=== PATIENT | female | born 1940 | race Caucasian/White ===

== ENCOUNTER 2017-05-04 00:25 | Inpatient (IN) | payer MEDICARE, OTHER ==
[2017-05-04 01:21] LABS: Troponin I 0.024 ng/mL (< 0.028)
[2017-05-04 01:22] LABS: ALT (SGPT) 13 U/L (8-55); AST (SGOT) 20 U/L (5-34); Alkaline Phosphatase 73 U/L (40-150); Anion Gap 16 mmol/L (10-20); BUN (Urea Nitrogen) 25 mg/dL (9.8-20.1); Bilirubin, Total 0.9 mg/dL (0.2-1.2); CK (CPK) 41 U/L (29-168); Calc. Creatinine Clearance 0 mL/min (70-130); Calcium 10.3 mg/dL (7.8-10.44); Carbon Dioxide 22 mmol/L (23-31); Chloride 97 mmol/L (98-107); Estimated GFR-MDRD 60; Globulin 4.2 g/dL (2.4-3.5); Protein, Total 7.4 g/dL (6.0-8.3)
[2017-05-04 01:27] LABS: Band 15 % (5-11); Hematocrit 38.4 % (36.0-47.0); Mean Platelet Volume 6.9 fL (7.4-10.4); Metamyelocyte 1 % (0-0); Neutrophil 72 % (42-75); Red Blood Cell (RBC) Count 4.02 mill/uL (4.20-5.40)
[2017-05-04] MEDS ORDERED: cefTRIAXone\\ROCEPHIN 2 GM in Sodium Chloride 0.9% 100 ML IVPB SCH (01:45)
[2017-05-04] MEDS ORDERED: Azithromycin 500 MG in Sodium Chloride 0.9% 250 ML 250 ML IVPB SCH (02:00)
[2017-05-04 02:01] LABS: Lactic Acid - Sepsis 1.7 mmol/L (0.5-2.2)
[2017-05-04] MEDS ORDERED: Acetaminophen 650 MG Suppository PR PRN (03:56)
[2017-05-04 05:12] VITALS: BMI 16.1
[2017-05-04] MEDS: Sodium Chloride 0.9% 1,000 ML IV SCH ×2 (05:30→18:10)
--- NOTE | 2017-05-04 08:05 | RAD ---
TWO VIEWS CHEST: DATE: 05/04/17. PROVIDED CLINICAL HISTORY: Cough. FINDINGS: No comparisons. Cardiac and mediastinal silhouette is within normal limits. Prominent emphysematous changes are seen. There is bibasilar consolidation with small bilateral pleural effusions. There i s no evidence for pneumothorax. Biapical pleural parenchymal scarring-type changes are seen. Scolio sis of the thoracic spine is noted. IMPRESSION: 1. Bibasilar consolidation, compatible with pneumonia in the appropriate clinical context. Followup radiographs after treatment recommended to evaluate for resolution. 2. Small bilateral pleural effusions. 3. Emphysema. POS: OFF
[2017-05-04] MEDS: Enoxaparin Sodium 40 MG/0.4 ML SYRINGE SC SCH (08:32)
--- NOTE | 2017-05-04 09:05 | HP ---
PRIMARY CARE PHYSICIAN: Dr. Refugio Etienne at [facility]. CHIEF COMPLAINT: Cough. HISTORY OF PRESENT ILLNESS: The patient was seen at [facility] on 05/04/2017. She reports that over the last 2 weeks, she has been having cough that is productive of a greenish to yellow sputum. She reports shortness of breath accompanying the cough. Shortness of breath is wors e with exertion. She denies any fevers, but reports chills. She denies any nausea or vomiting. She was smoking 1 pack of cigarettes a day, but did not have any cigarettes over the last 5 days. She d enies any abdominal pain. She reports occasional wheezing and chest tightness. She has received inf luenza vaccine and pneumococcal vaccine this year. REVIEW OF SYSTEMS: The following complete review of systems was negative, unless otherwise mentioned in the HPI or below: Constitutional: Weight loss or gain, sense of well-being, ability to conduct usual activities, exerc ise tolerance. Skin/Breast: Rash, itching, changes in hair growth or loss, nail changes, breast lumps, tenderness, swelling, nipple discharge. Eyes: Vision, double vision, tearing, blind spots, pain. ENT/Mouth: Headaches (location, time of onset, duration, precipitating factors), vertigo, lightheade dness, injury. Vision, double vision, tearing, blind spots, pain, nose bleeding, colds, obstruction, discharge, dental difficulties, gingival bleeding, dentures, neck stiffness, pain, tenderness, masses in thyroid or other areas. Cardiovascular: Precordial pain, substernal distress, palpitations, syncope, dyspnea on exertion, or thopnea, nocturnal paroxysmal dyspnea, edema, cyanosis, hypertension, heart murmurs, varicosities, ph lebitis, claudication. Respiratory: Pain, shortness of breath, wheezing, stridor, cough, hemoptysis, fever or night sweats. Gastrointestinal: Poor appetite, dysphagia, indigestion, abdominal pain, heartburn, eructation, naus ea, vomiting, hematemesis, jaundice, constipation, or diarrhea, abnormal stools (marin-colored, tarry, bloody, greasy, foul smelling), flatulence, hemorrhoids, recent changes in bowel habits. Genitourinary: Urgency, frequency, dysuria, nocturia, hematuria, polyuria, oliguria, unusual (or chriss nge in) color of urine, stones, hesitancy, change in size of stream, dribbling, acute retention or in continence, libido, potency. Musculoskeletal: Pain, swelling, redness or heat of muscles or joints, limitation, of motion, muscul ar weakness, atrophy, cramps. Neurologic/Psychiatric: Convulsions, paralyses, tremor, incoordination, paresthesias, difficulties w ith memory of speech, sensory or motor disturbances, or muscular coordination (ataxia, tremor), emoti onal problems, anxiety, depression, previous psychiatric care, unusual perceptions, hallucinations. Allergy/Immunologic: Skin rash, anemia, bleeding tendency, polydipsia, polyuria, intolerance to heat or cold. PAST MEDICAL HISTORY: Significant for gastroesophageal reflux disease, dyslipidemia, osteoarthritis, and restless leg syndrome. PAST SURGICAL HISTORY: Significant for hernia repair and hysterectomy. PSYCHIATRIC HISTORY: Significant for depression. SOCIAL HISTORY: History of tobacco use as described above. No history of alcohol use or recreationa l drug use. She lives alone. FAMILY HISTORY: Her younger brother has Parkinson's disease. ALLERGIES: No known drug allergies. CURRENT MEDICATIONS: Protonix 40 mg daily, carbidopa/levodopa 50/200 mg daily, benazepril 20 mg julián y. CODE STATUS: I discussed her code status. She is FULL CODE. PHYSICAL EXAMINATION: GENERAL: On examination, the patient is awake and alert, in mild respiratory distress. VITAL SIGNS: Blood pressure is 126/56, pulse is 91. She is breathing at rate of 20 and saturating 1 00% on 3 liters of oxygen. Her room air oxygen saturation was 88%. She appears frail, weighing 46.2 7 kilograms. EYES: No scleral icterus, no conjunctival pallor. ENT: Moist mucosal membranes, no oropharyngeal erythema or exudates. NECK: Supple, nontender, normal range of movement, trachea is midline. RESPIRATORY: Accessory muscles of breathing are mildly active. She has diffuse expiratory wheeze ov er the upper lung zones, diminished air entry at both bases. CARDIOVASCULAR: S1 and S2 are heard, regular. Peripheral pulses palpable. No carotid bruit, no per icardial rub. ABDOMEN: Soft, nontender, bowel sounds heard, no hepatomegaly, no splenomegaly. NEUROLOGIC: Cranial nerves II-XII are intact. Deep tendon reflexes are 2+. MUSCULOSKELETAL: Power is 5/5 in all 4 extremities. SKIN: No rashes or subcutaneous nodules. LYMPHATIC: No cervical lymphadenopathy. PSYCHIATRIC: The patient appears anxious, oriented to person, place, and time. LABORATORY DATA: Labs and investigations were reviewed. I reviewed her electrocardiogram, which kimberly ws normal sinus rhythm, no ST changes to suggest an acute coronary syndrome and left ventricular hype rtrophy. I also reviewed her chest x-ray, which shows a left lower lobe pulmonary infiltrate. Labor atory investigations show normal white count, elevated hemoglobin of 16.2, normal platelet count, INR 1.1, normal sodium, normal potassium, elevated blood urea nitrogen of 23, elevated creatinine of 1.1 9, elevated calcium of 11 and normal liver profile. Troponin I is normal. ASSESSMENT AND PLAN: The patient was seen at [facility] on 05/04/2017. Her corbin medina list includes: 1. Acute hypoxic respiratory failure: Most likely secondary to pneumonia. 2. Community-acquired pneumonia: She will be treated with oxygen as needed, bronchodilators and ant ibiotics. 3. Hypertension: Her home medications will be resumed, vital signs will be monitored and antihypert ensives titrated as needed. 4. Tobacco abuse: The patient has been counseled regarding tobacco cessation. She does not use tob acco in 5 days, does not want to have nicotine replacement therapy at this point. 5. Acute kidney injury: Likely prerenal, patient reports that she has not been eating or drinking w ell over the last few days. We will provide intravenous hydration and recheck her creatinine level. 6. Hypercalcemia: Mild, we will recheck calcium level. 7. Restless leg syndrome: Continue levodopa/carbidopa. Many thanks for allowing me to participate in your patient's care. Please feel free to contact me wi th any questions or concerns. LEVEL OF RISK: High. LEVEL OF COMPLEXITY: High.
[2017-05-04] MEDS ORDERED: Benzonatate 100 MG CAP PO PRN (15:29)
--- NOTE | 2017-05-04 15:31 | PDOC.EVN ---
Event Note - Event Note Event Note: Pt seen and examined, notes reviewed. States she breathing better, tolerating IV abx. No fever, but continues to have dry nonproductive cough. Nebs helping. CCM, add in Mucinex and tessalon
[2017-05-04] MEDS: cefTRIAXone\\ROCEPHIN 1 GM in Syringe 10 ML SLOW IVP SCH (20:07)
[2017-05-04] MEDS: guaiFENesin ER 600 MG TAB PO SCH (20:08)
[2017-05-04] MEDS: Azithromycin 500 MG in Sodium Chloride 0.9% 250 ML 250 ML IVPB SCH (21:08)
[2017-05-05 06:31] LABS: Anion Gap 10 mmol/L (10-20); BUN (Urea Nitrogen) 12 mg/dL (9.8-20.1); Band 37 % (5-11); Calc. Creatinine Clearance 54 mL/min (70-130); Calcium 8.7 mg/dL (7.8-10.44); Carbon Dioxide 21 mmol/L (23-31); Chloride 101 mmol/L (98-107); Estimated GFR-MDRD Greater than 90; Hematocrit 31.3 % (36.0-47.0); Mean Platelet Volume 6.8 fL (7.4-10.4); Neutrophil 52 % (42-75); Red Blood Cell (RBC) Count 3.26 mill/uL (4.20-5.40); White Blood Cell (WBC) Count 11.7 thou/uL (4.8-10.8)
[2017-05-05] MEDS: Sodium Chloride 0.9% 1,000 ML IV SCH ×2 (08:20→21:46)
[2017-05-05] MEDS: guaiFENesin ER 600 MG TAB PO SCH ×2 (08:21→20:34)
[2017-05-05] MEDS: Enoxaparin Sodium 40 MG/0.4 ML SYRINGE SC SCH (08:21)
--- NOTE | 2017-05-05 12:47 | PDOC.PN ---
- Subjective Encounter Start Date: 05/05/17 Encounter Start Time: 08:00 PT feels a little better today. Tessalon helping, mobilizing plegm much better no wheezing, no CP, no F/C, no N/V/D/c, wayne abs without itching or rash 10 point ROS performed and neg for all systems except as per HPI above - Objective Resuscitation Status: Resuscitation Status FULL:Full Resuscitation MAR Reviewed: Yes Vital Signs & Weight: Vital Signs (12 hours) Temp Pulse Resp BP Pulse Ox 05/05/17 12:04 85 16 93 L 05/05/17 08:00 98.5 F 80 20 120/65 91 L 05/05/17 06:56 81 18 92 L Weight Admit Weight 91 lb Weight 91 lb I&O: 05/04/17 05/05/17 05/06/17 06:59 06:59 06:59 Intake Total 2119 Balance 2119 Result Diagrams: 05/05/17 05:27 05/05/17 05:27 Radiology Reviewed by me: Yes EKG Reviewed by me: Yes Phys Exam - Physical Examination acutely ill-appearing but no distress, stable HEENT: PERRLA, moist MMs, sclera anicteric, oral pharynx no lesions Neck: no nodes, no JVD, supple, full ROM coarse bilateral breath sounds/rales Cardiovascular: RRR, no significant murmur, no rub Gastrointestinal: soft, non-tender, no distention, positive bowel sounds Musculoskeletal: no edema, pulses present Neurological: non-focal, normal sensation, moves all 4 limbs Lymphatic: no nodes Psychiatric: normal affect, A&O x 3 Skin: no rash, normal turgor, cap refill <2 seconds Dx/Plan (1) CAP (community acquired pneumonia) Code(s): J18.9 - PNEUMONIA, UNSPECIFIED ORGANISM Status: Acute Qualifiers: Laterality: unspecified laterality Qualified Code(s): J18.9 - Pneumonia, unspecified organism Comment: bilateral bases. repeat CXR today, 2 view (2) Acute hypoxemic respiratory failure Code(s): J96.01 - ACUTE RESPIRATORY FAILURE WITH HYPOXIA Status: Acute (3) HTN (hypertension) Code(s): I10 - ESSENTIAL (PRIMARY) HYPERTENSION Status: Chronic Qualifiers: Hypertension type: essential hypertension Qualified Code(s): I10 - Essential (primary) hypertension (4) Tobacco abuse Code(s): Z72.0 - TOBACCO USE Status: Chronic Comment: counseled regarding need to cessate - Plan cont current plan of care, PT/OT, social media coordinator, respiratory therapy * . will likely need rehab, CM consulted
--- NOTE | 2017-05-05 15:39 | RAD ---
FRONTAL AND LATERAL IMAGING OF THE CHEST: Date: 05-05-17 Comparison: 05-04-17 History: Community acquired pneumonia. FINDINGS: There is no pneumothorax seen on either side. There is prominent scoliotic curvature of the thoracolu mbar spine. There is nonspecific bibasilar pleural and parenchymal opacities obscuring the bilateral hemidiaphragms, left greater than right. The opacity in both lung bases has worsened slightly when co mpared to the 05-04-17 examination. IMPRESSION: Worsening bibasilar pleural and parenchymal opacity. This may signify bibasilar infectious pneumoniti s/aspiration and/or pulmonary edema. Follow up imaging following treatment to document resolution adv ised. POS: FABIO
[2017-05-05] MEDS: cefTRIAXone\\ROCEPHIN 1 GM in Syringe 10 ML SLOW IVP SCH (20:33)
[2017-05-05] MEDS: Azithromycin 500 MG in Sodium Chloride 0.9% 250 ML 250 ML IVPB SCH (21:06)
[2017-05-06] MEDS: Acetaminophen 325 MG TAB PO PRN (01:58)
[2017-05-06] MEDS: Sodium Chloride 0.9% 1,000 ML IV SCH ×2 (01:59→13:28)
[2017-05-06 06:11] LABS: Anion Gap 7 mmol/L (10-20); BUN (Urea Nitrogen) 4 mg/dL (9.8-20.1); Calc. Creatinine Clearance 60 mL/min (70-130); Calcium 9.4 mg/dL (7.8-10.44); Carbon Dioxide 24 mmol/L (23-31); Chloride 103 mmol/L (98-107); Estimated GFR-MDRD Greater than 90; Magnesium 1.5 mg/dL (1.6-2.6)
[2017-05-06 06:16] LABS: #Basophils 0.2 thou/uL (0.0-0.2); #Eosinphils 0.1 thou/uL (0.0-0.7); #Lymphocytes 1.2 thou/uL (1.20-3.40); #Monocytes 0.9 thou/uL (0.11-0.59); #Neutrophils 7.3 thou/uL (1.40-6.50); %Basophils 1.8 % (0.0-1.0); %Eosinophils 1.2 % (0.0-10.0); %Lymphocytes 12.6 % (21.0-51.0); %Monocytes 8.9 % (0.0-10.0); Hematocrit 31.9 % (36.0-47.0); Mean Platelet Volume 6.9 fL (7.4-10.4); Red Blood Cell (RBC) Count 3.32 mill/uL (4.20-5.40); White Blood Cell (WBC) Count 9.6 thou/uL (4.8-10.8)
[2017-05-06] MEDS ORDERED: Albuterol Sulfate 2.5 mg/3 ml Neb NEB PRN (07:51)
[2017-05-06] MEDS ORDERED: Potassium Chloride 20 MEQ TAB PO SCH (08:00)
[2017-05-06] MEDS ORDERED: Magnesium 2 GM/NS 0.9% 100 ML 2 GM in Premix Bag 1 BAG IVPB SCH (08:00)
[2017-05-06] MEDS: Enoxaparin Sodium 40 MG/0.4 ML SYRINGE SC SCH (09:03)
[2017-05-06] MEDS: guaiFENesin ER 600 MG TAB PO SCH ×2 (09:04→20:20)
[2017-05-06] MEDS: predniSONE 20 MG TAB PO SCH (09:04)
[2017-05-06] MEDS: Potassium Chloride 10 MEQ TAB PO SCH ×3 (09:04→16:59)
--- NOTE | 2017-05-06 15:10 | PDOC.PN ---
- Subjective Encounter Start Date: 05/06/17 Encounter Start Time: 10:40 Pt seen and examined on rounds walking down hallway well with Pt. a little unsteady, but mad eit almost 200 feet. No f/C, no n/v/D/C. SOB slightly better. didnt sleep well. Cough productive, no blood. 10 point ROS performed and neg for all except as per HPI - Objective Resuscitation Status: Resuscitation Status FULL:Full Resuscitation MAR Reviewed: Yes Vital Signs & Weight: Vital Signs (12 hours) Temp Pulse Resp BP Pulse Ox 05/06/17 13:34 90 14 05/06/17 08:14 80 14 05/06/17 08:00 97.9 F 80 14 114/56 L 93 L Weight Admit Weight 91 lb Weight 91 lb I&O: 05/05/17 05/06/17 05/07/17 06:59 06:59 06:59 Intake Total 0 3010 Balance 0 3010 Result Diagrams: 05/06/17 04:13 05/06/17 04:13 Radiology Reviewed by me: Yes EKG Reviewed by me: Yes Phys Exam - Physical Examination Constitutional: NAD HEENT: PERRLA, moist MMs, sclera anicteric, oral pharynx no lesions Neck: no nodes, no JVD, supple, full ROM Respiratory: no wheezing, no rhonchi bibasilar crackles present, no wheezing, slightly prolong exp Cardiovascular: RRR, no significant murmur, no rub Gastrointestinal: soft, non-tender, no distention, positive bowel sounds Musculoskeletal: no edema, pulses present Neurological: non-focal, normal sensation, moves all 4 limbs Lymphatic: no nodes Psychiatric: normal affect, A&O x 3 Skin: no rash, normal turgor, cap refill <2 seconds Dx/Plan (1) CAP (community acquired pneumonia) Code(s): J18.9 - PNEUMONIA, UNSPECIFIED ORGANISM Status: Acute Qualifiers: Laterality: unspecified laterality Qualified Code(s): J18.9 - Pneumonia, unspecified organism Comment: bilateral bases. CM, can transition to Levofloxacin po tomorrow. home when O2 down or arranged and stable (2) Acute hypoxemic respiratory failure Code(s): J96.01 - ACUTE RESPIRATORY FAILURE WITH HYPOXIA Status: Acute (3) HTN (hypertension) Code(s): I10 - ESSENTIAL (PRIMARY) HYPERTENSION Status: Chronic Qualifiers: Hypertension type: essential hypertension Qualified Code(s): I10 - Essential (primary) hypertension (4) Tobacco abuse Code(s): Z72.0 - TOBACCO USE Status: Chronic Comment: counseled regarding need to cessate (5) Acute exacerbation of chronic obstructive pulmonary disease (COPD) Code(s): J44.1 - CHRONIC OBSTRUCTIVE PULMONARY DISEASE W (ACUTE) EXACERBATION Status: Acute Comment: not previosuly diagnosed with COPD, but prolonged tobacco use jail. Steroids added, scheduled duonebs and PRN albuterol. Will give a single dose of soluMedrol - Plan cont current plan of care, continue antibiotics, PT/OT, respiratory therapy * .
[2017-05-06] MEDS ORDERED: methylPREDNISolone Sod Succ/PF 125 MG/2 ML VIAL IVP SCH (15:15)
[2017-05-06] MEDS ORDERED: Polyethylene Glycol 3350 17 GM Packet PO SCH (15:45)
[2017-05-06] MEDS: cefTRIAXone\\ROCEPHIN 1 GM in Syringe 10 ML SLOW IVP SCH (20:19)
[2017-05-06] MEDS: Azithromycin 500 MG in Sodium Chloride 0.9% 250 ML 250 ML IVPB SCH (20:58)
[2017-05-07] MEDS: Sodium Chloride 0.9% 1,000 ML IV SCH ×2 (03:10→11:52)
[2017-05-07 05:39] LABS: Anion Gap 9 mmol/L (10-20); BUN (Urea Nitrogen) 9 mg/dL (9.8-20.1); Calc. Creatinine Clearance 59 mL/min (70-130); Calcium 9.1 mg/dL (7.8-10.44); Carbon Dioxide 21 mmol/L (23-31); Chloride 107 mmol/L (98-107); Estimated GFR-MDRD Greater than 90
[2017-05-07 06:40] LABS: Band 12 % (5-11); Hematocrit 31.3 % (36.0-47.0); Mean Platelet Volume 6.7 fL (7.4-10.4); Neutrophil 78 % (42-75); Red Blood Cell (RBC) Count 3.25 mill/uL (4.20-5.40); Toxic Granulation SLIGHT; White Blood Cell (WBC) Count 8.9 thou/uL (4.8-10.8)
[2017-05-07] MEDS: Enoxaparin Sodium 40 MG/0.4 ML SYRINGE SC SCH (08:55)
[2017-05-07] MEDS: Polyethylene Glycol 3350 17 GM Packet PO SCH (08:55)
[2017-05-07] MEDS: predniSONE 20 MG TAB PO SCH (08:56)
[2017-05-07] MEDS: guaiFENesin ER 600 MG TAB PO SCH ×2 (08:56→20:30)
--- NOTE | 2017-05-07 14:15 | PQF ---
Date: 05-07-17 ATTN: DR. ALLAN BUSBY Please exercise your independent, professional judgment in responding to the clarification form. Clinical indicators are provided on the bottom of this form for your review Please check appropriate box(s): [ X ] Protein Calorie Malnutrition: [ X ] Mild [ ] Moderate [ ] Severe [ ] Cachexia [ ] Other diagnosis [ ] Unable to determine In addition, please specify: Present on Admission (POA): [ X ] Yes [ ] No [ ] Unable to determine CLINICAL INDICATORS - SIGNS / SYMPTOMS / LABS BMI of 16.1 BARTENDER MANAGER CONSULT 05-04-17: Wt loss, po, and low BMI triggers BARTENDER MANAGER CONSULT 05-04-17: The pt notes she has been sick with a cough since 2 days before Thanksgiving. She has not been eating as much as she usually does, then for 5 days prior to admit she did not eat anything. She weighed 102# 1.5 months ago at her doctor's office. RISK FACTORS: BARTENDER MANAGER CONSULT 05-04-17: The pt notes she has been sick with a cough since 2 days before Thanksgiving. She has not been eating as much as she usually does, then for 5 days prior to admit she did not eat anything. She weighed 102# 1.5 months ago at her doctor's office. DEPRESSION, MUSCLE WASTING NOTED TO TEMPLES AND CLAVICLES, CHRONIC POOR APPETITE TREATMENT: BARTENDER MANAGER CONSULT 05-04-17: 1. Continue heart healthy diet. 2. Recommend Ensure Enlive BID. 3. Provide bowel regimen prn. (This form is maintained as a part of the permanent medical record) 2014 [employer]. All Rights Reserved [email or web address] Office: [phone] KIRBY
--- NOTE | 2017-05-07 14:35 | PQF ---
DATE: 05-07-17 ATTN: ALLAN BUSBY Please exercise your independent, professional judgment in responding to the clarification form. Clinical indicators are provided on the bottom of this form for your review Please check appropriate box(s): [ X ] Hyponatremia [ ] Insignificant Lab Value [ ] Other diagnosis [ ] Unable to determine In addition, please specify: Present on Admission (POA): [ X ] Yes [ ] No [ ] Unable to determine For continuity of documentation, please document condition throughout progress notes and discharge summary. Thank You. CLINICAL INDICATORS - SIGNS / SYMPTOMS/ LABS are present in the medical record: Lab Results: SODIUM: 05-04-17: 131 05-05-17: 129 05-06-17: 131 05-07-17: 132 RISK FACTORS: H&P: HTN, HYPERCALCEMIA TREATMENT: SERIES OF ELECTROLYTE LABS, IVF NS (05-04-17) (This form is maintained as a part of the permanent medical record) 2014 [employer] All Rights Reserved [email or web address] Office: [phone] KIRBY
--- NOTE | 2017-05-07 16:32 | PDOC.PN ---
- Subjective Encounter Start Date: 05/07/17 Encounter Start Time: 09:20 Pt seen for followup re: pneumonia. Denies chest pain. Cough+ SOBOE+ sputum+ - Objective Resuscitation Status: Resuscitation Status FULL:Full Resuscitation MAR Reviewed: Yes Vital Signs & Weight: Vital Signs (12 hours) Temp Pulse Pulse Resp BP BP Pulse Ox 05/07/17 12:00 97.4 F L 70 16 111/62 94 L 05/07/17 11:52 80 16 05/07/17 08:00 97.9 F 80 16 126/72 93 L 05/07/17 07:53 82 126/72 05/07/17 06:37 70 16 Pulse Ox 05/07/17 12:00 05/07/17 11:52 05/07/17 08:00 05/07/17 07:53 93 L 05/07/17 06:37 Weight Admit Weight 91 lb Weight 91 lb I&O: 05/06/17 05/07/17 05/08/17 06:59 06:59 06:59 Intake Total 3010 1740 Balance 3010 1740 Result Diagrams: 05/07/17 04:18 05/07/17 04:18 Phys Exam - Physical Examination Constitutional: NAD HEENT: moist MMs Neck: supple Respiratory: no rales, no rhonchi, wheezing present Cardiovascular: RRR, no rub Gastrointestinal: soft Musculoskeletal: pulses present Neurological: moves all 4 limbs Skin: no rash Dx/Plan (1) CAP (community acquired pneumonia) Code(s): J18.9 - PNEUMONIA, UNSPECIFIED ORGANISM Status: Acute Qualifiers: Laterality: unspecified laterality Qualified Code(s): J18.9 - Pneumonia, unspecified organism (2) Hyponatremia Code(s): E87.1 - HYPO-OSMOLALITY AND HYPONATREMIA Status: Acute (3) HTN (hypertension) Code(s): I10 - ESSENTIAL (PRIMARY) HYPERTENSION Status: Chronic Qualifiers: Hypertension type: essential hypertension Qualified Code(s): I10 - Essential (primary) hypertension (4) Tobacco abuse Code(s): Z72.0 - TOBACCO USE Status: Chronic (5) Protein-calorie malnutrition, mild Code(s): E44.1 - MILD PROTEIN-CALORIE MALNUTRITION Status: Chronic - Plan continue antibiotics, PT/OT, out of bed/ambulate, DVT proph w/lovenox * . Transition to oral antibiotics. Ambulate pt. Pt still needing supplemental oxygen. Review of Systems - Review of Systems Constitutional: negative: Fever, Chills, Sweats, Weakness, Malaise Respiratory: Cough, SOB with Excertion, Sputum. negative: Dry, Shortness of Breath, Hemoptysis, Pleuritic Pain, Wheezing Cardiovascular: negative: Chest Pain, Palpitations, Orthopnea, Paroxysmal Noc. Dyspnea, Edema, Light Headedness - Medications/Allergies Allergies/Adverse Reactions: Allergies Allergy/AdvReac Type Severity Reaction Status Date / Time No Known Allergies Allergy Verified 05/04/17 05:09 Medications: Current Medications Acetaminophen (Tylenol) 650 mg PO Q4H PRN PRN Reason: Headache/Fever or Pain Last Admin: 05/06/17 01:58 Dose: 650 mg Acetaminophen (Tylenol) 650 mg PA Q4H PRN PRN Reason: Headache/Fever or Pain Albuterol Sulfate (Ventolin) 2.5 mg NEB Q2H PRN PRN Reason: Wheezing Albuterol/Ipratropium (Duoneb) 3 ml NEB [id number] [facility] Last Admin: 05/07/17 11:52 Dose: 3 ml Benzonatate (Tessalon) 100 mg PO Q4H PRN PRN Reason: Cough Last Admin: 05/07/17 04:24 Dose: 100 mg Enoxaparin Sodium (Lovenox) 40 mg SC 0900 [facility] Last Admin: 05/07/17 08:55 Dose: 40 mg Guaifenesin (Mucinex) 600 mg PO Q12HR [facility] Last Admin: 05/07/17 08:56 Dose: 600 mg Azithromycin 500 mg/ Sodium (Chloride) 250 mls @ 250 mls/hr IVPB Q24HR@2200 [facility] Last Admin: 05/06/17 20:58 Dose: 250 mls Ceftriaxone Sodium 1 gm/ (Syringe) 10 mls @ 120 mls/hr SLOW IVP Q24HR@2100 [facility] Last Admin: 05/06/17 20:19 Dose: 10 mls Sodium Chloride (Normal Saline 0.9%) 1,000 mls @ 70 mls/hr IV .[id number] [facility] Last Admin: 05/07/17 11:52 Dose: 1,000 mls Polyethylene Glycol (Miralax) 17 gm PO DAILY [facility] Last Admin: 05/07/17 08:55 Dose: 17 gm Prednisone (Prednisone) 20 mg PO QAM-WM [facility] Last Admin: 05/07/17 08:56 Dose: 20 mg Sodium Chloride (Flush - Normal Saline) 10 ml IVF Q12HR [facility] Last Admin: 05/07/17 08:56 Dose: Not Given Sodium Chloride (Flush - Normal Saline) 10 ml IVF PRN PRN PRN Reason: Saline Flush
[2017-05-08] MEDS: Sodium Chloride 0.9% 1,000 ML IV SCH ×2 (06:13→17:32)
[2017-05-08] MEDS: Polyethylene Glycol 3350 17 GM Packet PO SCH (08:25)
[2017-05-08] MEDS: guaiFENesin ER 600 MG TAB PO SCH ×2 (08:25→21:21)
[2017-05-08] MEDS: Enoxaparin Sodium 40 MG/0.4 ML SYRINGE SC SCH (08:25)
[2017-05-08] MEDS: predniSONE 20 MG TAB PO SCH (08:25)
[2017-05-08 09:15] LABS: #Eosinphils 0.3 thou/uL (0.0-0.7); #Neutrophils 7.2 thou/uL (1.40-6.50); %Basophils 0.1 % (0.0-1.0); %Eosinophils 2.8 % (0.0-10.0); %Lymphocytes 19.1 % (21.0-51.0); %Monocytes 9.7 % (0.0-10.0); Hematocrit 38.7 % (36.0-47.0); Mean Platelet Volume 6.3 fL (7.4-10.4); Red Blood Cell (RBC) Count 4.02 mill/uL (4.20-5.40); White Blood Cell (WBC) Count 10.6 thou/uL (4.8-10.8)
[2017-05-08 09:24] LABS: Anion Gap 10 mmol/L (10-20); BUN (Urea Nitrogen) 9 mg/dL (9.8-20.1); Calc. Creatinine Clearance 53 mL/min (70-130); Calcium 9.3 mg/dL (7.8-10.44); Carbon Dioxide 22 mmol/L (23-31); Chloride 103 mmol/L (98-107); Estimated GFR-MDRD Greater than 90
[2017-05-08] MEDS ORDERED: ISOVUE-370 76%-LOCM 1 ML ONE (11:35)
--- NOTE | 2017-05-08 12:11 | PDOC.PN ---
- Subjective Encounter Start Date: 05/08/17 Encounter Start Time: 08:20 Pt seen for followup re: pneumonia. Denies chest pain. Cough+. No nausea or vomiting. - Objective Resuscitation Status: Resuscitation Status FULL:Full Resuscitation MAR Reviewed: Yes Vital Signs & Weight: Vital Signs (12 hours) Temp Pulse Resp BP Pulse Ox 05/08/17 11:59 74 16 94 L 05/08/17 08:00 97.9 F 78 16 151/76 H 91 L 05/08/17 07:38 97.9 F 78 22 H 151/76 H 91 L 05/08/17 05:45 81 14 95 Weight Admit Weight 91 lb Weight 91 lb I&O: 05/07/17 05/08/17 05/09/17 06:59 06:59 06:59 Intake Total 1740 1840 Balance 1740 1840 Result Diagrams: 05/08/17 08:59 05/08/17 08:59 Phys Exam - Physical Examination Constitutional: NAD HEENT: moist MMs, oral pharynx no lesions Neck: supple Respiratory: no wheezing, no rales, no rhonchi, clear to auscultation bilateral Cardiovascular: RRR Gastrointestinal: soft Musculoskeletal: pulses present Neurological: moves all 4 limbs Psychiatric: normal affect Skin: no rash Dx/Plan (1) CAP (community acquired pneumonia) Code(s): J18.9 - PNEUMONIA, UNSPECIFIED ORGANISM Status: Acute Qualifiers: Laterality: unspecified laterality Qualified Code(s): J18.9 - Pneumonia, unspecified organism (2) Hyponatremia Code(s): E87.1 - HYPO-OSMOLALITY AND HYPONATREMIA Status: Acute (3) HTN (hypertension) Code(s): I10 - ESSENTIAL (PRIMARY) HYPERTENSION Status: Chronic Qualifiers: Hypertension type: essential hypertension Qualified Code(s): I10 - Essential (primary) hypertension (4) Tobacco abuse Code(s): Z72.0 - TOBACCO USE Status: Chronic (5) Protein-calorie malnutrition, mild Code(s): E44.1 - MILD PROTEIN-CALORIE MALNUTRITION Status: Chronic - Plan continue antibiotics, PT/OT, out of bed/ambulate * . Pt on oral antibiotics today. Given ongoing oxygen requirtements in spite of being on antibiotics, will check CT chest to r/o PE. If normal, pt will need home oxygen prior to discharge. Review of Systems - Review of Systems Respiratory: Cough, SOB with Excertion Cardiovascular: negative: Chest Pain, Palpitations, Orthopnea, Paroxysmal Noc. Dyspnea, Edema, Light Headedness Gastrointestinal: negative: Nausea, Vomiting, Abdominal Pain, Diarrhea, Constipation, Melena, Hematochezia Genitourinary: negative: Dysuria, Frequency, Incontinence, Hematuria, Retention - Medications/Allergies Allergies/Adverse Reactions: Allergies Allergy/AdvReac Type Severity Reaction Status Date / Time No Known Allergies Allergy Verified 05/04/17 05:09 Medications: Current Medications Acetaminophen (Tylenol) 650 mg PO Q4H PRN PRN Reason: Headache/Fever or Pain Last Admin: 05/06/17 01:58 Dose: 650 mg Acetaminophen (Tylenol) 650 mg IN Q4H PRN PRN Reason: Headache/Fever or Pain Albuterol Sulfate (Ventolin) 2.5 mg NEB Q2H PRN PRN Reason: Wheezing Albuterol/Ipratropium (Duoneb) 3 ml NEB [id number] [facility] Last Admin: 05/08/17 11:59 Dose: 3 ml Benzonatate (Tessalon) 100 mg PO Q4H PRN PRN Reason: Cough Last Admin: 05/07/17 04:24 Dose: 100 mg Enoxaparin Sodium (Lovenox) 40 mg SC 0900 [facility] Last Admin: 05/08/17 08:25 Dose: 40 mg Guaifenesin (Mucinex) 600 mg PO Q12HR [facility] Last Admin: 05/08/17 08:25 Dose: 600 mg Sodium Chloride (Normal Saline 0.9%) 1,000 mls @ 70 mls/hr IV .[id number] [facility] Last Admin: 05/08/17 06:13 Dose: 1,000 mls Levofloxacin (Levaquin) 750 mg PO 0600 [facility] Last Admin: 05/08/17 05:12 Dose: 750 mg Polyethylene Glycol (Miralax) 17 gm PO DAILY [facility] Last Admin: 05/08/17 08:25 Dose: 17 gm Prednisone (Prednisone) 20 mg PO QAM-WM [facility] Last Admin: 05/08/17 08:25 Dose: 20 mg Sodium Chloride (Flush - Normal Saline) 10 ml IVF Q12HR [facility] Last Admin: 05/08/17 08:26 Dose: Not Given Sodium Chloride (Flush - Normal Saline) 10 ml IVF PRN PRN PRN Reason: Saline Flush
--- NOTE | 2017-05-08 14:45 | CT ---
CT ANGIOGRAM CHEST: HISTORY: Evaluate for pulmonary artery embolism. Community acquired pneumonia. COMPARISON: None. TECHNIQUE: A CT angiogram of the chest is performed in the axial plane. Oblique and coronal 3-dimensional refor matted images are submitted for interpretation. FINDINGS: Trachea and central bronchi are patent. There are emphysematous changes throughout the lung parenchy ma, greatest in the upper lobes. There is bilateral apical pleural thickening with adjacent parenchy mal opacification, likely representing areas of scarring. Irregular marginated opacities are noted i n the right lower lobe, which may represent areas of infiltration. A more focal well circumscribed n odule in the right upper lobe, measuring 0.9 cm, is noted. There is bibasilar consolidation with air bronchograms. There is a small left and right pleural effusion. With regard to the left and right lower lobe, there is heterogeneous enhancement, suggesting areas of possible necrosis, due to infecti on. Incompletely evaluated hypodensity in the right kidney with an attenuation coefficient of 5 Hounsfiel d units, suggesting a large cyst, measuring approximately 1 cm. Remaining visualized upper solid org ans are unremarkable. Questionable striated nephrogram phase in left kidney. Correlate for possible pyelonephritis. There is evidence of right hilar lymphadenopathy, measuring 1.8 x 1.3 cm. Nonspecific precarinal lym ph node, measuring 1.3 x 1.0 cm. Heart size is within normal limits. There are coronary artery calc ifications. The thoracic aorta and upper abdominal aorta have an overall normal caliber. No periaor tic fat stranding. No dissection. Coronary artery calcifications are identified. Adequate contrast opacification of the pulmonary arterial system to the level of the segmental arteri es. No filling defect to suggest thromboembolism. IMPRESSION: 1. No evidence of pulmonary artery embolism to the level of the segmental arteries. 2. Bilateral pleural effusion with bibasilar consolidation due to atelectasis or pneumonia. Heterog eneous enhancement does favor an infectious process with possible areas of necrotic lung parenchyma. 3. Right hilar lymphadenopathy. Nonspecific precarinal lymph node. 4. Questionable striated nephrogram in the left kidney. Correlate clinically for pyelonephritis. 5. Ill defined and irregular marginated hypodensities in the right lower lobe, which may represent a n area of infiltrate. Continued surveillance to ensure resolution is recommended. POS: [facility]
--- NOTE | 2017-05-08 16:08 | PDOC.EVN ---
Event Note - Event Note Event Note: CTA report noted. Suspicious for necrotizing pneumonia. Expand antibiotic coverage, consult pulmonology.
[2017-05-08] MEDS ORDERED: Cefepime 2 GM in Sodium Chloride 0.9% 100 ML IVPB SCH (16:15)
[2017-05-08] MEDS: Cefepime 2 GM, Syringe 2.5 ML in Sterile Water 10 ML SLOW IVP SCH (17:32)
[2017-05-08] MEDS: Vancomycin HCl 1 GM in Premix Bag 1 BAG IVPB SCH (17:33)
[2017-05-09 05:36] LABS: #Eosinphils 0.1 thou/uL (0.0-0.7); #Neutrophils 7.2 thou/uL (1.40-6.50); %Basophils 0.2 % (0.0-1.0); %Eosinophils 0.7 % (0.0-10.0); %Lymphocytes 26.6 % (21.0-51.0); %Monocytes 8.8 % (0.0-10.0); Hematocrit 37.8 % (36.0-47.0); Mean Platelet Volume 6.5 fL (7.4-10.4); Red Blood Cell (RBC) Count 3.95 mill/uL (4.20-5.40); White Blood Cell (WBC) Count 11.3 thou/uL (4.8-10.8)
[2017-05-09] MEDS: Cefepime 2 GM, Syringe 2.5 ML in Sterile Water 10 ML SLOW IVP SCH ×2 (05:46→16:36)
[2017-05-09 06:51] LABS: Anion Gap 11 mmol/L (10-20); BUN (Urea Nitrogen) 8 mg/dL (9.8-20.1); Calc. Creatinine Clearance 48 mL/min (70-130); Calcium 9.1 mg/dL (7.8-10.44); Carbon Dioxide 23 mmol/L (23-31); Chloride 103 mmol/L (98-107); Estimated GFR-MDRD 87
[2017-05-09] MEDS: predniSONE 20 MG TAB PO SCH (07:55)
[2017-05-09] MEDS: guaiFENesin ER 600 MG TAB PO SCH ×2 (07:56→21:48)
[2017-05-09] MEDS: Polyethylene Glycol 3350 17 GM Packet PO SCH (07:59)
[2017-05-09] MEDS: Enoxaparin Sodium 40 MG/0.4 ML SYRINGE SC SCH (07:59)
[2017-05-09] MEDS: Acetaminophen 325 MG TAB PO PRN ×2 (08:02→16:43)
[2017-05-09] MEDS: Sodium Chloride 0.9% 1,000 ML IV SCH (08:03)
[2017-05-09] MEDS ORDERED: traMADol HCl 50 MG TAB PO PRN (08:13)
[2017-05-09] MEDS ORDERED: BENAZEPRIL HCL 20 MG PO SCH (09:00)
[2017-05-09] MEDS ORDERED: ALENDRONATE SODIUM PO SCH (09:00)
[2017-05-09] MEDS ORDERED: Fluticasone Propionate Nasal Spray 16 gm Bottle NASAL SCH (09:00)
[2017-05-09] MEDS: Alendronate Sodium 70 mg Tablet PO SCH (10:15)
[2017-05-09] MEDS: Fluticasone Propionate Nasal Spray 16 gm Bottle NASAL SCH (10:16)
--- NOTE | 2017-05-09 11:19 | PDOC.PN ---
- Subjective Encounter Start Date: 05/09/17 Encounter Start Time: 08:00 Pt seen for followup re: pneumonia. Reports cough. No fevers. Feels weak. - Objective Resuscitation Status: Resuscitation Status FULL:Full Resuscitation MAR Reviewed: Yes Vital Signs & Weight: Vital Signs (12 hours) Temp Pulse Resp BP BP Pulse Ox 05/09/17 08:00 97.8 F 89 22 H 96 05/09/17 07:48 97.8 F 89 22 H 159/79 H 96 05/09/17 05:57 74 16 95 05/09/17 04:00 97.8 F 75 20 168/7 H 90 L 05/09/17 01:57 94 L 05/09/17 00:22 79 12 95 Weight Admit Weight 91 lb Weight 91 lb I&O: 05/08/17 05/09/17 05/10/17 06:59 06:59 06:59 Intake Total 1840 1200 Balance 1840 1200 Result Diagrams: 05/09/17 04:00 05/09/17 04:00 Phys Exam - Physical Examination Apperas frail HEENT: moist MMs Neck: supple Respiratory: no wheezing, no rales, no rhonchi, clear to auscultation bilateral Cardiovascular: RRR Gastrointestinal: soft Neurological: moves all 4 limbs Psychiatric: normal affect Dx/Plan (1) CAP (community acquired pneumonia) Code(s): J18.9 - PNEUMONIA, UNSPECIFIED ORGANISM Status: Acute Qualifiers: Laterality: unspecified laterality Qualified Code(s): J18.9 - Pneumonia, unspecified organism (2) Hyponatremia Code(s): E87.1 - HYPO-OSMOLALITY AND HYPONATREMIA Status: Acute (3) HTN (hypertension) Code(s): I10 - ESSENTIAL (PRIMARY) HYPERTENSION Status: Chronic Qualifiers: Hypertension type: essential hypertension Qualified Code(s): I10 - Essential (primary) hypertension (4) Tobacco abuse Code(s): Z72.0 - TOBACCO USE Status: Chronic (5) Protein-calorie malnutrition, mild Code(s): E44.1 - MILD PROTEIN-CALORIE MALNUTRITION Status: Chronic - Plan continue antibiotics, PT/OT, out of bed/ambulate, DVT proph w/lovenox Continue IV cefepime, IV levofloxacin and IV vancomycin. Pt is getting deconditioned. Monitor vital signs, titrate antihypertensives as needed. Ambulate patient. * . Review of Systems - Review of Systems Constitutional: Weakness Respiratory: Cough, SOB with Excertion, Sputum. negative: Dry, Shortness of Breath, Hemoptysis, Pleuritic Pain, Wheezing Cardiovascular: negative: Chest Pain, Palpitations, Orthopnea, Paroxysmal Noc. Dyspnea, Edema, Light Headedness Neurological: Weakness - Medications/Allergies Allergies/Adverse Reactions: Allergies Allergy/AdvReac Type Severity Reaction Status Date / Time No Known Allergies Allergy Verified 05/04/17 05:09 Medications: Current Medications Acetaminophen (Tylenol) 650 mg PO Q4H PRN PRN Reason: Headache/Fever or Pain Last Admin: 05/09/17 08:02 Dose: 650 mg Acetaminophen (Tylenol) 650 mg [place] Q4H PRN PRN Reason: Headache/Fever or Pain Albuterol Sulfate (Ventolin) 2.5 mg NEB Q2H PRN PRN Reason: Wheezing Albuterol/Ipratropium (Duoneb) 3 ml NEB [id number] [facility] Last Admin: 05/09/17 05:57 Dose: 3 ml Alendronate Sodium (Fosamax) 35 mg PO DAILY [facility] Last Admin: 05/09/17 10:15 Dose: Not Given Benazepril HCl (Lotensin) 20 mg PO DAILY [facility] Last Admin: 05/09/17 08:49 Dose: Not Given Benzonatate (Tessalon) 100 mg PO Q4H PRN PRN Reason: Cough Last Admin: 05/07/17 04:24 Dose: 100 mg Carbidopa/Levodopa (Sinemet Cr 50/200) 1 tab PO HS [facility] Enoxaparin Sodium (Lovenox) 40 mg SC 0900 [facility] Last Admin: 05/09/17 07:59 Dose: Not Given Fluticasone Propionate (Flonase Nasal [place]) 0 gm NASAL DAILY [facility] Last Admin: 05/09/17 10:16 Dose: Not Given Guaifenesin (Mucinex) 600 mg PO Q12HR [facility] Last Admin: 05/09/17 07:56 Dose: 600 mg Vancomycin HCl 1 gm/ Device 200 mls @ 200 mls/hr IVPB 1800 [facility] Last Admin: 05/08/17 17:33 Dose: 200 mls Cefepime HCl 2 gm/ Syringe 2.5 (ml/ Sterile Water) 12.5 mls @ 150 mls/hr SLOW IVP 0500,1700 [facility] Last Admin: 05/09/17 05:46 Dose: 12.5 mls Levofloxacin 750 mg/ Device 150 mls @ 100 mls/hr IVPB 0600 [facility] Last Admin: 05/09/17 05:50 Dose: 150 mls Miscellaneous Medication (Pharmacy To Dose) 1 each IVPB ONE PRN PRN Reason: Pharmacy to dose Stop: 06/07/17 16:05 Pantoprazole Sodium (Protonix) 40 mg PO DAILY [facility] Last Admin: 05/09/17 08:48 Dose: 40 mg Polyethylene Glycol (Miralax) 17 gm PO DAILY [facility] Last Admin: 05/09/17 07:59 Dose: Not Given Prednisone (Prednisone) 20 mg PO QAM-WM [facility] Last Admin: 05/09/17 07:55 Dose: 20 mg Sodium Chloride (Flush - Normal Saline) 10 ml IVF Q12HR [facility] Last Admin: 05/09/17 07:57 Dose: Not Given Sodium Chloride (Flush - Normal Saline) 10 ml IVF PRN PRN PRN Reason: Saline Flush Tramadol HCl (Ultram) 50 mg PO Q6H PRN PRN Reason: pain
[2017-05-09] MEDS: Vancomycin HCl 1 GM in Premix Bag 1 BAG IVPB SCH (16:39)
[2017-05-09] MEDS ORDERED: Carbidopa/Levodopa CR 50-200 mg Tablet PO SCH (21:00)
[2017-05-09] MEDS: Carbidopa/Levodopa CR 50-200 mg Tablet PO SCH (21:48)
--- NOTE | 2017-05-09 22:07 | CON ---
DATE OF CONSULTATION: 05/09/2017 SERVICE: Pulmonary Medicine. REASON FOR CONSULTATION: Pneumonia. HISTORY OF PRESENT ILLNESS: The patient is a 76-year-old white female with past medical history sign ificant for essentially nothing. She does smoke on a daily basis. She may have some sleep apnea, wh ich is mild. Otherwise, she was in her usual state of health until one week prior to admission. She started having fevers, chills, cough, congestion, and yellow sputum production. She felt sick all o kelly. She presented to the hospital, was discovered to have a left lower lobe pneumonia. She was hyp oxemic on presentation. This is slowly being clearing. She continues to have persistent oxygen desa turation whenever she is ambulating, which brings on significant fatigue and weakness. When she is s itting in bed, things are going fairly well. All told, she is feeling much improved since she has be en in the hospital. She has no other complaints. PAST MEDICAL HISTORY: 1. Gastroesophageal reflux disease. 2. Dyslipidemia. 3. Osteoarthritis. 4. Restless legs syndrome. 5. Tobacco abuse. PAST SURGICAL HISTORY: 1. Hernia repair. 2. Hysterectomy. SOCIAL HISTORY: Negative for current alcohol or illicit drug use. She smokes about half a pack to a pack a day. She has been smoking for the better part of 50 years. She currently lives alone and conteh s no exposures to chemicals, dust, asbestos, or tuberculosis. FAMILY HISTORY: Noncontributory. ALLERGIES: No known drug allergies. MEDICATIONS: List of inpatient medications were reviewed. No specific updates were made at [facility]. REVIEW OF SYSTEMS: General, head, ears, eyes, nose, throat, cardiovascular, respiratory, GI, , mus culoskeletal, neurologic, and skin is negative except as mentioned in the HPI. PHYSICAL EXAMINATION: VITAL SIGNS: Afebrile, pulse 89, blood pressure 115/64, respirations 20, saturation 96% on 2 liters nasal cannula on room air. She saturates 90%. With ambulation, she drops to 86% and has profound dy spnea. By ambulating with 2 liters of nasal cannula, her oxygen does not desaturate and she maintain s 93%. She also has improved ability to move around. HEENT: Normocephalic, atraumatic. Sclerae are white, conjunctivae pink. Oral and nasal mucosa is m oist without lesions. LUNGS: Excellent air entry. No prolonged expiratory phase or wheezing. No rhonchi any longer. HEART: Normal rate, regular. ABDOMEN: Soft, nontender, nondistended, bowel sounds positive. MUSCULOSKELETAL: No cyanosis or clubbing. No pitting in the bilateral lower extremities. NEUROLOGIC: Grossly nonfocal. LABORATORY DATA: WBC 11.3, hemoglobin 12.3. Platelets 515,000. Neutrophil count is 63%, which has returned to normal. Sodium 131, which is roughly stable. Basic metabolic profile, liver function st udies are otherwise unremarkable. Lactate is negative. JAMAL screen is negative. Blood cultures grow ing koseri in 1 out of 2. Influenza and repeat blood culture was negative. IMAGIN. CTA of the chest demonstrates no evidence of pulmonary embolism. There is a left lower lobe dens e consolidation with air bronchograms, consistent with the socked-in pneumonia. 2. Chest x-ray demonstrates left-sided pleural parenchymal opacification. ASSESSMENT: 1. Acute hypoxic respiratory failure, slow to improve. 2. Community-acquired pneumonia, severe. 3. Tobacco abuse. 4. Obstructive sleep apnea, possible. PLAN: At this point, the patient is actually improved fairly dramatically. We need to repeat candi patel once again in the outpatient setting. I would like her to follow up with me in clinic in 4-6 weeks after discharge from the hospital. She has completed 6 days of antibiotics. We can likely convert over to p.o. medications, and consider her for discharge tomorrow morning. I would give her an addit ional 3 days of antibiotics. I have given her some precautions that if she is to get worse, she has returned back to the emergency department or present to me sooner in clinic. I will continue to foll ow while she remains in house, but if things remain stable, we can discharge in the morning. I talke d about setting her up with oxygen in the outpatient setting and she preferred not to do that. I sug gested that I am okay with not sending her home on oxygen provided that she is able to get up and wal k around her entire unit 2-3 times tomorrow.
[2017-05-10 05:45] LABS: #Eosinphils 0.1 thou/uL (0.0-0.7); #Lymphocytes 2.9 thou/uL (1.20-3.40); #Monocytes 0.8 thou/uL (0.11-0.59); #Neutrophils 7.3 thou/uL (1.40-6.50); %Basophils 0.1 % (0.0-1.0); %Eosinophils 1.1 % (0.0-10.0); %Lymphocytes 26.1 % (21.0-51.0); %Monocytes 7.5 % (0.0-10.0); Hematocrit 36.3 % (36.0-47.0); Mean Platelet Volume 6.2 fL (7.4-10.4); Red Blood Cell (RBC) Count 3.77 mill/uL (4.20-5.40); White Blood Cell (WBC) Count 11.2 thou/uL (4.8-10.8)
[2017-05-10 06:17] LABS: Anion Gap 9 mmol/L (10-20); BUN (Urea Nitrogen) 9 mg/dL (9.8-20.1); Calc. Creatinine Clearance 46 mL/min (70-130); Calcium 8.8 mg/dL (7.8-10.44); Carbon Dioxide 27 mmol/L (23-31); Chloride 99 mmol/L (98-107); Estimated GFR-MDRD 83
[2017-05-10] MEDS: predniSONE 20 MG TAB PO SCH (08:05)
[2017-05-10] MEDS: guaiFENesin ER 600 MG TAB PO SCH ×2 (08:05→21:08)
[2017-05-10] MEDS: Alendronate Sodium 70 mg Tablet PO SCH (08:06)
[2017-05-10] MEDS: Enoxaparin Sodium 40 MG/0.4 ML SYRINGE SC SCH (08:06)
[2017-05-10] MEDS: Fluticasone Propionate Nasal Spray 16 gm Bottle NASAL SCH (08:07)
[2017-05-10] MEDS: Polyethylene Glycol 3350 17 GM Packet PO SCH (08:07)
--- NOTE | 2017-05-10 11:46 | PDOC.PN ---
- Subjective Encounter Start Date: 05/10/17 Encounter Start Time: 09:40 Pt seen for followup re: pneumonia. Cough better. Feels better. - Objective Resuscitation Status: Resuscitation Status FULL:Full Resuscitation MAR Reviewed: Yes Vital Signs & Weight: Vital Signs (12 hours) Temp Pulse Resp BP BP Pulse Ox 05/10/17 11:30 79 14 96 05/10/17 08:06 112/80 05/10/17 08:00 98.1 F 92 22 H 112/80 92 L 05/10/17 05:47 81 16 96 05/10/17 03:50 96 Weight Admit Weight 91 lb Weight 91 lb I&O: 05/09/17 05/10/17 05/11/17 06:59 06:59 06:59 Intake Total 1200 480 Balance 1200 480 Result Diagrams: 05/10/17 04:01 05/10/17 04:01 Phys Exam - Physical Examination Constitutional: NAD HEENT: moist MMs Neck: supple Respiratory: clear to auscultation bilateral Cardiovascular: RRR Gastrointestinal: soft Musculoskeletal: pulses present Neurological: moves all 4 limbs Psychiatric: normal affect Dx/Plan (1) CAP (community acquired pneumonia) Code(s): J18.9 - PNEUMONIA, UNSPECIFIED ORGANISM Status: Acute Qualifiers: Laterality: unspecified laterality Qualified Code(s): J18.9 - Pneumonia, unspecified organism (2) Hyponatremia Code(s): E87.1 - HYPO-OSMOLALITY AND HYPONATREMIA Status: Acute (3) HTN (hypertension) Code(s): I10 - ESSENTIAL (PRIMARY) HYPERTENSION Status: Chronic Qualifiers: Hypertension type: essential hypertension Qualified Code(s): I10 - Essential (primary) hypertension (4) Tobacco abuse Code(s): Z72.0 - TOBACCO USE Status: Chronic (5) Protein-calorie malnutrition, mild Code(s): E44.1 - MILD PROTEIN-CALORIE MALNUTRITION Status: Chronic - Plan continue antibiotics, PT/OT, out of bed/ambulate * . Ambulate pt. Continue Levaquin. Appreciate pulmonology consult. Likely home later today or tomorrow. Review of Systems - Review of Systems Constitutional: Weakness Respiratory: Cough, Dry. negative: Shortness of Breath, Hemoptysis, SOB with Excertion, Pleuritic Pain, Sputum, Wheezing Cardiovascular: negative: Chest Pain, Palpitations, Orthopnea, Paroxysmal Noc. Dyspnea, Edema, Light Headedness - Medications/Allergies Allergies/Adverse Reactions: Allergies Allergy/AdvReac Type Severity Reaction Status Date / Time No Known Allergies Allergy Verified 05/04/17 05:09 Medications: Current Medications Acetaminophen (Tylenol) 650 mg PO Q4H PRN PRN Reason: Headache/Fever or Pain Last Admin: 05/09/17 16:43 Dose: 650 mg Acetaminophen (Tylenol) 650 mg [place] Q4H PRN PRN Reason: Headache/Fever or Pain Albuterol Sulfate (Ventolin) 2.5 mg NEB Q2H PRN PRN Reason: Wheezing Albuterol/Ipratropium (Duoneb) 3 ml NEB [id number] [facility] Last Admin: 05/10/17 11:30 Dose: 3 ml Alendronate Sodium (Fosamax) 35 mg PO DAILY [facility] Last Admin: 05/10/17 08:06 Dose: Not Given Benazepril HCl (Lotensin) 20 mg PO DAILY [facility] Last Admin: 05/10/17 08:06 Dose: Not Given Carbidopa/Levodopa (Sinemet Cr 50/200) 1 tab PO HS [facility] Last Admin: 05/09/17 21:48 Dose: 1 tab Enoxaparin Sodium (Lovenox) 40 mg SC 0900 [facility] Last Admin: 05/10/17 08:06 Dose: Not Given Fluticasone Propionate (Flonase Nasal [place]) 0 gm NASAL DAILY [facility] Last Admin: 05/10/17 08:07 Dose: 1 spr Guaifenesin (Mucinex) 600 mg PO Q12HR [facility] Last Admin: 05/10/17 08:05 Dose: 600 mg Levofloxacin (Levaquin) 750 mg PO 0600 [facility] Stop: 05/15/17 06:01 Last Admin: 05/10/17 06:02 Dose: 750 mg Pantoprazole Sodium (Protonix) 40 mg PO DAILY [facility] Last Admin: 05/10/17 08:05 Dose: 40 mg Polyethylene Glycol (Miralax) 17 gm PO DAILY [facility] Last Admin: 05/10/17 08:07 Dose: Not Given Prednisone (Prednisone) 20 mg PO QAM-WM [facility] Last Admin: 05/10/17 08:05 Dose: 20 mg Sodium Chloride (Flush - Normal Saline) 10 ml IVF Q12HR [facility] Last Admin: 12/10/17 08:08 Dose: 10 ml Sodium Chloride (Flush - Normal Saline) 10 ml IVF PRN PRN PRN Reason: Saline Flush Tramadol HCl (Ultram) 50 mg PO Q6H PRN PRN Reason: pain
--- NOTE | 2017-05-10 19:55 | PRG ---
DATE OF SERVICE: 05/10/2016 SERVICE: Pulmonary Medicine. INTERVAL HISTORY: The patient really is doing okay from a respiratory standpoint. Today, she walked around on 1 occasion. When she did that, she felt extraordinarily weak and lightheaded. As such, s he sat back down. She went again with oxygen and she could go for a longer distance. She is not popeye nging up much in the way of sputum any longer. She continues to have dyspnea with exertion. When sh e is resting, she is fairly comfortable. PHYSICAL EXAMINATION: VITAL SIGNS: Afebrile, pulse 92, blood pressure 112/80, respirations 22, saturation 96% on 2 liters nasal cannula. GENERAL: The patient is awake and alert, in no apparent distress. LUNGS: Decent air entry with rhonchi present. No prolonged expiratory phase or wheezing is apprecia mohamud. HEART: Normal rate, regular. ABDOMEN: Soft, nontender, nondistended. Bowel sounds positive. MUSCULOSKELETAL: No cyanosis or clubbing. No pitting in the bilateral lower extremities. NEUROLOGIC: Grossly nonfocal. LABORATORY: WBC 11.2, hemoglobin 11.5, platelets 482,000. Sodium 131. Basic metabolic profile is o therwise unremarkable. Blood cultures are growing [place] in 1 out of 2. Repeat blood cultures negat francesca. Influenza is unremarkable. ASSESSMENT: 1. Acute hypoxic respiratory failure, slow to improve because she had a severe pneumonia. 2. Community-acquired pneumonia, severe. 3. Tobacco abuse. 4. Obstructive sleep apnea, possible. PLAN: The patient continues to make some improvements, albeit slowly. Ultimately, she is going to n eed a 10-day course of antibiotics. She will require a repeat chest x-ray in 4-6 weeks in the outpat ient setting to verify if the infiltrate resolves. If not, repeat CT scans plus or minus bronchoscop y will need to be considered. If case management can set up oxygen in the outpatient setting, it wou ld be reasonable to think about transitioning her home. She will continue working to increase mobili ty as tolerated. I will change her nebulized medications over to something that provides more airway clearance technique.
[2017-05-10] MEDS: Carbidopa/Levodopa CR 50-200 mg Tablet PO SCH (21:08)
[2017-05-11] MEDS: Enoxaparin Sodium 40 MG/0.4 ML SYRINGE SC SCH (07:37)
[2017-05-11] MEDS: Polyethylene Glycol 3350 17 GM Packet PO SCH (07:37)
[2017-05-11] MEDS: guaiFENesin ER 600 MG TAB PO SCH (07:38)
[2017-05-11] MEDS: predniSONE 20 MG TAB PO SCH (07:38)
[2017-05-11] MEDS: Alendronate Sodium 70 mg Tablet PO SCH (07:39)
[2017-05-11] MEDS: Fluticasone Propionate Nasal Spray 16 gm Bottle NASAL SCH (07:44)
[2017-05-11 08:32] VITALS: BP 133/69; TEMP 98.3
--- NOTE | 2017-05-11 17:13 | PRG ---
DATE OF SERVICE: 05/11/2017 SERVICE: Pulmonary Medicine. INTERVAL HISTORY: The patient is doing great from a respiratory standpoint. She is breathing fine. She remains on 1 liter nasal cannula. When she goes off her oxygen, she does not feel any overt dif ficulty with breathing. That being said, she continues to have persistent dyspnea with any exertion. She maintains better saturations and functional status while wearing oxygen is exerting herself. O therwise, there has been no interval change to her condition. She has nearly completed her course of antibiotics. PHYSICAL EXAMINATION: VITAL SIGNS: Afebrile, pulse 86, blood pressure 133/69, respirations 20, saturation 93% on 2 liters nasal cannula. GENERAL: Patient is awake, alert, in no apparent distress. LUNGS: Excellent air entry. There is no prolonged expiratory phase or wheezing. HEART: Normal rate, regular. ABDOMEN: Soft, nontender, nondistended. Bowel sounds positive. MUSCULOSKELETAL: No cyanosis or clubbing. There is no pitting in the bilateral lower extremities. NEUROLOGIC: Grossly nonfocal. ASSESSMENT: 1. Acute hypoxic respiratory failure, slowly improving. 2. Community-acquired pneumonia, severe. 3. Tobacco abuse. 4. Obstructive sleep apnea, possible. PLAN: The patient will continue moving as much as tolerated. Her cough and sputum production have b oth improved. Ultimately, she will require repeat chest x-ray in 4-6 weeks in the outpatient setting to verify the infiltrate has resolved. If it has not, this will prompt a CT scan and likely broncho scopy. I will address this in the outpatient setting. At that time, she will be considered for home polysomnogram.
--- NOTE | 2017-05-11 17:26 | PDOC.PN ---
- Subjective Encounter Start Date: 05/11/17 Encounter Start Time: 17:25 Pt seen for followup re: pneumonia. Cough still+, TORRES+. - Objective Resuscitation Status: Resuscitation Status FULL:Full Resuscitation Vital Signs & Weight: Vital Signs (12 hours) Temp Pulse Resp BP BP Pulse Ox 05/11/17 13:58 86 20 93 L 05/11/17 10:36 95 20 90 L 05/11/17 08:44 99 05/11/17 08:42 97 16 99 05/11/17 08:00 98.3 F 97 22 H 133/69 99 05/11/17 07:39 112/80 Weight Admit Weight 91 lb Weight 91 lb I&O: 05/10/17 05/11/17 05/12/17 06:59 06:59 06:59 Intake Total 480 Balance 480 Result Diagrams: 05/10/17 04:01 05/10/17 04:01 Phys Exam - Physical Examination Constitutional: NAD HEENT: moist MMs, sclera anicteric Neck: supple Respiratory: clear to auscultation bilateral Cardiovascular: RRR Gastrointestinal: soft Neurological: moves all 4 limbs Psychiatric: normal affect Dx/Plan (1) CAP (community acquired pneumonia) Code(s): J18.9 - PNEUMONIA, UNSPECIFIED ORGANISM Status: Acute Qualifiers: Laterality: unspecified laterality Qualified Code(s): J18.9 - Pneumonia, unspecified organism (2) Hyponatremia Code(s): E87.1 - HYPO-OSMOLALITY AND HYPONATREMIA Status: Acute (3) HTN (hypertension) Code(s): I10 - ESSENTIAL (PRIMARY) HYPERTENSION Status: Chronic Qualifiers: Hypertension type: essential hypertension Qualified Code(s): I10 - Essential (primary) hypertension (4) Tobacco abuse Code(s): Z72.0 - TOBACCO USE Status: Chronic (5) Protein-calorie malnutrition, mild Code(s): E44.1 - MILD PROTEIN-CALORIE MALNUTRITION Status: Chronic - Plan * . Continue levofloxacin. Pt is awaiting approval for home oxygen. Likely discharge tomorrow. Review of Systems - Review of Systems Respiratory: Cough, Shortness of Breath, SOB with Excertion. negative: Dry, Hemoptysis, Pleuritic Pain, Sputum, Wheezing Cardiovascular: negative: Chest Pain, Palpitations, Orthopnea, Paroxysmal Noc. Dyspnea, Edema, Light Headedness - Medications/Allergies Allergies/Adverse Reactions: Allergies Allergy/AdvReac Type Severity Reaction Status Date / Time No Known Allergies Allergy Verified 05/04/17 05:09 Medications: Current Medications Acetaminophen (Tylenol) 650 mg PO Q4H PRN PRN Reason: Headache/Fever or Pain Last Admin: 05/09/17 16:43 Dose: 650 mg Acetaminophen (Tylenol) 650 mg [place] Q4H PRN PRN Reason: Headache/Fever or Pain Albuterol Sulfate (Ventolin) 2.5 mg NEB Q2H PRN PRN Reason: Wheezing Albuterol/Ipratropium (Duoneb) 3 ml EZPAP [id number] [facility] Last Admin: 05/11/17 13:58 Dose: 3 ml Alendronate Sodium (Fosamax) 35 mg PO DAILY [facility] Last Admin: 05/11/17 07:39 Dose: 35 mg Benazepril HCl (Lotensin) 20 mg PO DAILY [facility] Last Admin: 05/11/17 07:39 Dose: Not Given Carbidopa/Levodopa (Sinemet Cr 50/200) 1 tab PO HS [facility] Last Admin: 05/10/17 21:08 Dose: 1 tab Enoxaparin Sodium (Lovenox) 40 mg SC 0900 [facility] Last Admin: 05/11/17 07:37 Dose: Not Given Fluticasone Propionate (Flonase Nasal [place]) 0 gm NASAL DAILY [facility] Last Admin: 05/11/17 07:44 Dose: 1 spr Guaifenesin (Mucinex) 600 mg PO Q12HR [facility] Last Admin: 05/11/17 07:38 Dose: 600 mg Levofloxacin (Levaquin) 750 mg PO 0600 [facility] Stop: 05/15/17 06:01 Last Admin: 05/11/17 06:17 Dose: 750 mg Pantoprazole Sodium (Protonix) 40 mg PO DAILY [facility] Last Admin: 05/11/17 07:38 Dose: 40 mg Polyethylene Glycol (Miralax) 17 gm PO DAILY [facility] Last Admin: 05/11/17 07:37 Dose: 17 gm Prednisone (Prednisone) 20 mg PO QAM-WM [facility] Last Admin: 05/11/17 07:38 Dose: 20 mg Sodium Chloride (Flush - Normal Saline) 10 ml IVF Q12HR [facility] Last Admin: 05/11/17 07:44 Dose: 10 ml Sodium Chloride (Flush - Normal Saline) 10 ml IVF PRN PRN PRN Reason: Saline Flush Tramadol HCl (Ultram) 50 mg PO Q6H PRN PRN Reason: pain
--- NOTE | 2017-05-11 17:37 | DIS ---
DATE OF ADMISSION: 05/04/2017 DATE OF DISCHARGE: 05/11/2017 PRIMARY CARE PHYSICIAN: Refugio Etienne M.D. DISCHARGE DIAGNOSES: 1. Acute hypoxic respiratory failure. 2. Community-acquired pneumonia, severe. CONDITION OF PATIENT AT THE TIME OF DISCHARGE: Stable. ASSESSMENT OF PATIENT ON THE DAY OF DISCHARGE: She reports feeling better. She is still needing sup plemental oxygen. Vital signs are stable. S1 and S2 are heard, regular. Lungs are clear to auscult ation bilaterally. DISCHARGE MEDICATIONS: ProAir HFA 2 puffs every 6 hours as needed, alendronate sodium 35 mg daily, L otensin 20 mg daily, Sinemet CR 50/200 mg 1 tablet at bedtime, Flonase nasal spray one spray daily, L evaquin 750 mg daily for 3 more days, Medrol Dosepak 4 mg strength, Protonix 40 mg daily. HOSPITAL COURSE: Ms. Jj is a pleasant 76-year-old lady, who was admitted to [facility] on 05/04/2017 for acute hypoxic respiratory failure secondary to pneumonia. Influenza screen was negative. She was treated with intravenous antibiotics. She was seen by Pulmonology ser vice. CT angiogram of the chest on 05/08/2017 showed no evidence of pulmonary artery embolism. She had bilateral pleural effusion with bibasilar consolidation due to atelectasis or pneumonia. She als o had right hilar lymphadenopathy and nonspecific precarinal lymph node. She also had questionable s triated nephrogram in the left kidney. Clinically, there was no evidence of pyelonephritis, with no costovertebral angle tenderness. She also had ill-defined and irregular marginated hypodensities in the right lower lobe, which may represent an area of infiltrate. The radiologist recommended continu ed surveillance to ensure resolution. She improved clinically, but continued to be hypoxic. Arrangements are being made for home oxygen pr ior to discharge. She will need a followup chest x-ray in 4-6 weeks as an outpatient to verify of th e infiltrate results. If not, she will need repeat CT scans plus or minus bronchoscopy. CONSULTATIONS DURING THIS HOSPITALIZATION: Pulmonology, Dr. Eleazar Shearer. On the day of discharge, she has a white count of 11,200, hemoglobin 11.5, platelet count 482,000, so dium 131, potassium 4.2, and creatinine 0.69. Many thanks for allowing me to participate in your patient's care. Please feel free to contact me wi th any questions or concerns. DISCHARGE DESTINATION: Home. TOTAL AMOUNT OF TIME SPENT COORDINATING THIS DISCHARGE: 33 minutes.
== END 2017-05-11 19:45 | disposition home or self-care (01) | DRG 193 ==
LOC: ERS 00:25 → T4-A 03:00
PROVIDERS: ADMIT Internal Medicine; ATTEND Internal Medicine
DX: J18.9 Pneumonia, unspecified organism (principal); J96.01 Acute respiratory failure with hypoxia; N17.9 Acute kidney failure, unspecified; J44.0 Chronic obstructive pulmonary disease with (acute) lower respiratory infection; E87.1 Hypo-osmolality and hyponatremia; E44.1 Mild protein-calorie malnutrition; Z68.1 Body mass index [BMI] 19.9 or less, adult; J44.1 Chronic obstructive pulmonary disease with (acute) exacerbation; F17.210 Nicotine dependence, cigarettes, uncomplicated; K21.9 Gastro-esophageal reflux disease without esophagitis; E78.5 Hyperlipidemia, unspecified; M19.90 Unspecified osteoarthritis, unspecified site; G25.81 Restless legs syndrome; F32.9 Major depressive disorder, single episode, unspecified; I10 Essential (primary) hypertension; E83.52 Hypercalcemia; G47.33 Obstructive sleep apnea (adult) (pediatric); R59.0 Localized enlarged lymph nodes
CPT/HCPCS: 36415; 71020; 71275; 80048; 80053; 82550; 82553; 83605; 83735; 83880; 84484; 85025; 87040; 87077; 87149; 93005; 94640; 96365; 96367; 99406; A4216; G8978-GP-CJ; G8979-GP-CJ; G8980-GP-CJ; G8987-GO-CI; G8988-GO-CI; G8989-GO-CI; J0456; J0692; J0696; J1650; J1956; J2930; J3370; J3475; J7050; J7506; J7620

== ENCOUNTER 2021-04-08 09:58 | Outpatient (CLI) | payer MEDICARE | END 2021-04-08 09:59 | disposition home or self-care (01) | LOC: BICMAMMO 09:58 | PROVIDERS: ATTEND Internal Medicine | DX: N64.4 Mastodynia (principal) | CPT/HCPCS: 76642; 77066; G0279 ==

== ENCOUNTER 2023-02-06 10:44 | Outpatient (CLI) | payer MEDICARE | END 2023-02-06 10:45 | disposition home or self-care (01) | LOC: BICMAMMO 10:44 | PROVIDERS: ATTEND Family Medicine | DX: Z12.31 Encounter for screening mammogram for malignant neoplasm of breast (principal); Z13.6 Encounter for screening for cardiovascular disorders; I70.0 Atherosclerosis of aorta; Z80.3 Family history of malignant neoplasm of breast; Z98.890 Other specified postprocedural states | CPT/HCPCS: 76775; 77063; 77067 ==

== ENCOUNTER 2023-07-27 14:33 | Outpatient (CLI) | payer MEDICARE | END 2023-07-27 14:34 | disposition home or self-care (01) | LOC: BICMAMMO 14:33 | PROVIDERS: ATTEND Family Medicine | DX: M81.6 Localized osteoporosis [Lequesne] (principal); M41.56 Other secondary scoliosis, lumbar region; R05.3 Chronic cough; M47.816 Spondylosis without myelopathy or radiculopathy, lumbar region | CPT/HCPCS: 71046; 72100; 77080 ==

== ENCOUNTER 2024-06-10 16:44 | Emergency (ER) | payer MEDICARE ==
[2024-06-10] MEDS ORDERED: Benzonatate 100 MG CAP ONE ×2 (17:56→17:58)
== END 2024-06-10 19:11 | disposition home or self-care (01) ==
LOC: ERS 16:44
DX: J10.1 Influenza due to other identified influenza virus with other respiratory manifestations (principal); I10 Essential (primary) hypertension; F17.210 Nicotine dependence, cigarettes, uncomplicated; Z79.899 Other long term (current) drug therapy
CPT/HCPCS: 71045; 87081; 87428; 87430

== ENCOUNTER 2024-06-17 17:18 | Inpatient (IN) | payer MEDICARE ==
[2024-06-17 17:52] LABS: #Basophils 0.03 10x3/uL (0.0-0.2); #Eosinophils Less than 0.03 10x3/uL (0.0-0.7); %Basophils 0.2 % (0.0-1.0); %Lymphocytes 4.7 % (21.0-51.0); %Neutrophils 88.6 % (42.0-75.0); Hematocrit 41.5 % (36.0-47.0); Hemoglobin 14.5 g/dL (12.0-16.0); Mean Corpuscular HGB CONC 34.9 g/dL (32.0-36.0); Mean Corpuscular Hemoglobin 31.2 pg (27.0-31.0); Mean Corpuscular Volume 89.2 fL (78.0-98.0); Mean Platelet Volume 9.8 fL (7.4-10.4); Platelet Count 220 10x3/uL (130-400); RBC Distribution Width 12.9 % (11.5-14.5); Red Blood Cell (RBC) Count 4.65 mill/uL (4.20-5.40)
[2024-06-17 18:08] LABS: ALT (SGPT) 12 U/L (8-55); AST (SGOT) 19 U/L (5-34); Alkaline Phosphatase 49 U/L (40-110); Anion Gap 11 mmol/L (10-20); BUN (Urea Nitrogen) 7 mg/dL (9.8-20.1); Bilirubin, Total 1.1 mg/dL (0.2-1.2); Calc. Creatinine Clearance 0 mL/min (70-130); Calcium 8.9 mg/dL (7.8-10.44); Carbon Dioxide 22 mmol/L (23-31); Chloride 102 mmol/L (98-107); Estimated GFR 90; Globulin 3.9 g/dL (2.4-3.5); Glucose 129 mg/dL (83-110); Potassium 3.9 mmol/L (3.5-5.1); Protein, Total 6.9 g/dL (5.8-8.1); Sodium 131 mmol/L (136-145)
[2024-06-17] MEDS ORDERED: methylPREDNISolone Sod Succ/PF 125 MG/2 ML VIAL ONE (18:09)
[2024-06-17] MEDS ORDERED: Sodium Chloride 0.9% 100 ML ONE (18:09)
[2024-06-17] MEDS ORDERED: Azithromycin 500 MG VIAL ONE (18:09)
[2024-06-17] MEDS ORDERED: cefTRIAXone (ROCEPHIN) 2 GM VIAL ONE (18:09)
[2024-06-17 18:11] LABS: INR-International Normal Ratio 1.1; Prothrombin Time 14.5 sec (12.0-14.7)
[2024-06-17 18:12] LABS: PTT 41.9 sec (22.9-36.1); Troponin I 0.104 ng/mL (< 0.028)
[2024-06-17] MEDS ORDERED: Albuterol 2.5 MG (3 mL) NEB NEB PRN (19:13)
[2024-06-17] MEDS ORDERED: Ipratropium/Albuterol 3 ML NEB NEB PRN (19:13)
[2024-06-17] MEDS ORDERED: Calcium Carbonate 500 MG ChewTAB PO PRN (19:13)
[2024-06-17] MEDS ORDERED: Acetaminophen 325 MG TAB PO PRN (19:13)
[2024-06-17] MEDS ORDERED: Senokot S 8.6-50 MG TAB PO PRN (19:13)
[2024-06-17] MEDS ORDERED: Ondansetron PF 4 MG/2 ML Vial IVP PRN (19:13)
[2024-06-17 19:47] LABS: Bacteria/HPF None Seen HPF (None Seen); Bilirubin Negative (Negative); Blood, Urine Negative (Negative); CAUTI Indications for Culture Alt mental st,lethar; Clarity Clear (Clear); Glucose, Urine (Dipstick) Normal (Negative); Ketone, Urine Negative (Negative); Leukocyte Negative Leu/uL (Negative); Nitrite Negative (Negative); Protein, Urine (Dipstick) 20 mg/dL (Neg-Trace); Specific Gravity, Urine 1.014 (1.002-1.036); Squamous Epithelial None Seen HPF (0-3); Urobilinogen Normal mg/dL (Less than 2); WBC/HPF 0-3 HPF (0-3); pH, Urine 8.5 (5.0-9.0)
[2024-06-17 19:53] LABS: Urine Culture Reflex No No
[2024-06-17] MEDS ORDERED: traMADol HCl 50 MG TAB PO PRN (21:00)
[2024-06-17 21:05] VITALS: BMI 16.6
[2024-06-17 21:12] LABS: Troponin I 0.099 ng/mL (< 0.028)
[2024-06-17] MEDS: guaiFENesin ER 600 MG TAB PO SCH (21:13)
[2024-06-17] MEDS: Sodium Chloride 0.9% 1,000 ML IV SCH (21:13)
[2024-06-17] MEDS: Carbidopa/Levodopa CR 50-200 mg Tablet PO SCH (21:14)
[2024-06-18] MEDS: methylPREDNISolone Sod Succ 40 MG VIAL IVP SCH (05:23)
[2024-06-18 05:31] LABS: Legionella Urinary Ag Negative (Negative); Strep pneumo Urine Ag POSITIVE (NEGATIVE)
[2024-06-18 06:18] LABS: Hematocrit 36.6 % (36.0-47.0); Hemoglobin 12.7 g/dL (12.0-16.0); Mean Corpuscular HGB CONC 34.7 g/dL (32.0-36.0); Mean Corpuscular Hemoglobin 31.6 pg (27.0-31.0); Mean Platelet Volume 10.3 fL (7.4-10.4); Platelet Count 214 10x3/uL (130-400); RBC Distribution Width 13.2 % (11.5-14.5); Red Blood Cell (RBC) Count 4.02 mill/uL (4.20-5.40)
[2024-06-18 06:39] LABS: ALT (SGPT) 10 U/L (8-55); AST (SGOT) 13 U/L (5-34); Albumin 2.6 g/dL (3.4-4.8); Alkaline Phosphatase 41 U/L (40-110); Anion Gap 11 mmol/L (10-20); BUN (Urea Nitrogen) 7 mg/dL (9.8-20.1); Bilirubin, Total 0.6 mg/dL (0.2-1.2); Calc. Creatinine Clearance 55 mL/min (70-130); Calcium 8.4 mg/dL (7.8-10.44); Carbon Dioxide 18 mmol/L (23-31); Chloride 107 mmol/L (98-107); Estimated GFR 93; Globulin 3.4 g/dL (2.4-3.5); Glucose 134 mg/dL (83-110); Potassium 3.9 mmol/L (3.5-5.1); Sodium 132 mmol/L (136-145)
[2024-06-18 06:49] LABS: Band 28 % (5-11); Hypochromia SLIGHT = 6-15 cells HPF (0-5); Large Platelets 4.8 % (0-5); Lymphocytes 3 % (21-51); Metamyelocyte 7 % (0-0); Monocytes 2 % (0-10); Neutrophil 56 % (42-75); Platelet Adequacy Comment Platelets Normal; Polychromasia SLIGHT = 2-3 cells HPF (0-2); Reactive Lymphocytes 4 % (0-10)
[2024-06-18] MEDS: cefTRIAXone\\ROCEPHIN 1 GM in Sodium Chloride 0.9% 100 ML IVPB SCH (09:42)
[2024-06-18] MEDS: Lisinopril 20 MG TAB PO SCH (09:42)
[2024-06-18] MEDS: Pantoprazole 40 MG DR.TAB PO SCH (09:42)
[2024-06-18] MEDS: Aspirin 81 mg Enteric Coated Tablet PO SCH (09:42)
[2024-06-18] MEDS: Enoxaparin 40 MG (0.4 mL) SYRINGE SC SCH (09:42)
[2024-06-18] MEDS: Azithromycin 500 MG in Sodium Chloride 0.9% 250 ML 250 ML IVPB SCH (09:42)
[2024-06-18] MEDS: Ipratropium/Albuterol 3 ML NEB NEB SCH (10:06)
[2024-06-18] MEDS: BELBUCA FS SCH (20:07)
[2024-06-18] MEDS: Pregabalin 25 MG CAP PO SCH (20:09)
[2024-06-18] MEDS: tiZANidine HCl 4 MG TAB PO SCH (20:09)
[2024-06-19 04:11] LABS: #Basophils Less than 0.03 10x3/uL (0.0-0.2); #Eosinophils Less than 0.03 10x3/uL (0.0-0.7); %Basophils 0.1 % (0.0-1.0); %Lymphocytes 4.8 % (21.0-51.0); %Monocytes 2.7 % (0.0-10.0); %Neutrophils 91.9 % (42.0-75.0); Hematocrit 35.5 % (36.0-47.0); Hemoglobin 11.7 g/dL (12.0-16.0); Mean Corpuscular Hemoglobin 30.6 pg (27.0-31.0); Mean Corpuscular Volume 92.9 fL (78.0-98.0); Mean Platelet Volume 10.1 fL (7.4-10.4); Platelet Count 217 10x3/uL (130-400); RBC Distribution Width 13.2 % (11.5-14.5); Red Blood Cell (RBC) Count 3.82 mill/uL (4.20-5.40)
[2024-06-19 04:35] LABS: Anion Gap 10 mmol/L (10-20); BUN (Urea Nitrogen) 13 mg/dL (9.8-20.1); Calc. Creatinine Clearance 59 mL/min (70-130); Calcium 8.8 mg/dL (7.8-10.44); Carbon Dioxide 18 mmol/L (23-31); Chloride 108 mmol/L (98-107); Estimated GFR 94; Glucose 149 mg/dL (83-110); Potassium 3.5 mmol/L (3.5-5.1); Sodium 132 mmol/L (136-145)
[2024-06-19 08:42] LABS: Free T4 (Free Thyroxine) 1.09 ng/dL (0.70-1.48)
[2024-06-19] MEDS: Ipratropium/Albuterol 3 ML NEB NEB SCH (13:23)
[2024-06-19] MEDS: Mometasone 200 MCG/Formoterol 5 MCG 120 PUFF INHALER INH SCH (19:54)
[2024-06-20 04:47] LABS: #Basophils Less than 0.03 10x3/uL (0.0-0.2); #Eosinophils Less than 0.03 10x3/uL (0.0-0.7); %Basophils 0.1 % (0.0-1.0); %Lymphocytes 10.2 % (21.0-51.0); %Monocytes 5.8 % (0.0-10.0); %Neutrophils 83.3 % (42.0-75.0); Hematocrit 35.8 % (36.0-47.0); Hemoglobin 11.9 g/dL (12.0-16.0); Mean Corpuscular HGB CONC 33.2 g/dL (32.0-36.0); Mean Corpuscular Hemoglobin 30.7 pg (27.0-31.0); Mean Corpuscular Volume 92.3 fL (78.0-98.0); Mean Platelet Volume 10.3 fL (7.4-10.4); Platelet Count 250 10x3/uL (130-400); RBC Distribution Width 13.3 % (11.5-14.5); Red Blood Cell (RBC) Count 3.88 mill/uL (4.20-5.40)
[2024-06-20 05:12] LABS: Anion Gap 8 mmol/L (10-20); BUN (Urea Nitrogen) 13 mg/dL (9.8-20.1); Calc. Creatinine Clearance 54 mL/min (70-130); Calcium 8.7 mg/dL (7.8-10.44); Carbon Dioxide 19 mmol/L (23-31); Chloride 109 mmol/L (98-107); Estimated GFR 91; Glucose 100 mg/dL (83-110); Potassium 3.7 mmol/L (3.5-5.1); Sodium 132 mmol/L (136-145)
[2024-06-20] MEDS: Enoxaparin 30 MG (0.3 mL) SYRINGE SC SCH (09:32)
[2024-06-20] MEDS: predniSONE 50 MG TAB PO SCH (09:32)
[2024-06-20] MEDS: Benzonatate 100 MG CAP PO PRN (21:39)
[2024-06-21 04:29] LABS: #Basophils Less than 0.03 10x3/uL (0.0-0.2); #Eosinophils Less than 0.03 10x3/uL (0.0-0.7); %Lymphocytes 17.4 % (21.0-51.0); %Monocytes 8.1 % (0.0-10.0); %Neutrophils 73.6 % (42.0-75.0); Hematocrit 34.7 % (36.0-47.0); Hemoglobin 11.6 g/dL (12.0-16.0); Mean Corpuscular HGB CONC 33.4 g/dL (32.0-36.0); Mean Corpuscular Hemoglobin 30.9 pg (27.0-31.0); Mean Corpuscular Volume 92.5 fL (78.0-98.0); Mean Platelet Volume 9.9 fL (7.4-10.4); Platelet Count 282 10x3/uL (130-400); RBC Distribution Width 13.2 % (11.5-14.5); Red Blood Cell (RBC) Count 3.75 mill/uL (4.20-5.40)
[2024-06-21 04:51] LABS: Anion Gap 9 mmol/L (10-20); BUN (Urea Nitrogen) 17 mg/dL (9.8-20.1); Calc. Creatinine Clearance 54 mL/min (70-130); Calcium 8.8 mg/dL (7.8-10.44); Carbon Dioxide 24 mmol/L (23-31); Chloride 106 mmol/L (98-107); Estimated GFR 91; Glucose 98 mg/dL (83-110); Magnesium 1.9 mg/dL (1.6-2.6); Potassium 4.2 mmol/L (3.5-5.1); Sodium 135 mmol/L (136-145)
[2024-06-21 10:56] VITALS: BMI 17.0
[2024-06-22 04:51] LABS: #Basophils Less than 0.03 10x3/uL (0.0-0.2); #Eosinophils Less than 0.03 10x3/uL (0.0-0.7); %Basophils 0.1 % (0.0-1.0); %Eosinophils 0.1 % (0.0-10.0); %Lymphocytes 25.4 % (21.0-51.0); %Monocytes 12.1 % (0.0-10.0); %Neutrophils 61.2 % (42.0-75.0); Hematocrit 35.1 % (36.0-47.0); Hemoglobin 11.7 g/dL (12.0-16.0); Mean Corpuscular HGB CONC 33.3 g/dL (32.0-36.0); Mean Corpuscular Hemoglobin 30.7 pg (27.0-31.0); Mean Corpuscular Volume 92.1 fL (78.0-98.0); Mean Platelet Volume 9.6 fL (7.4-10.4); Platelet Count 304 10x3/uL (130-400); RBC Distribution Width 13.1 % (11.5-14.5); Red Blood Cell (RBC) Count 3.81 mill/uL (4.20-5.40)
[2024-06-22 05:08] LABS: Anion Gap 11 mmol/L (10-20); BUN (Urea Nitrogen) 16 mg/dL (9.8-20.1); Calc. Creatinine Clearance 53 mL/min (70-130); Calcium 8.9 mg/dL (7.8-10.44); Carbon Dioxide 26 mmol/L (23-31); Chloride 102 mmol/L (98-107); Estimated GFR 91; Glucose 91 mg/dL (83-110); Magnesium 1.9 mg/dL (1.6-2.6); Sodium 135 mmol/L (136-145)
[2024-06-22] MEDS: Albuterol 2.5 MG (3 mL) NEB NEB PRN (06:47)
[2024-06-23 06:33] LABS: #Basophils Less than 0.03 10x3/uL (0.0-0.2); %Basophils 0.1 % (0.0-1.0); %Eosinophils 0.3 % (0.0-10.0); %Lymphocytes 27.7 % (21.0-51.0); %Monocytes 9.1 % (0.0-10.0); %Neutrophils 60.9 % (42.0-75.0); Hematocrit 40.2 % (36.0-47.0); Hemoglobin 13.5 g/dL (12.0-16.0); Mean Corpuscular HGB CONC 33.6 g/dL (32.0-36.0); Mean Corpuscular Hemoglobin 30.5 pg (27.0-31.0); Mean Corpuscular Volume 90.7 fL (78.0-98.0); Mean Platelet Volume 9.6 fL (7.4-10.4); Platelet Count 390 10x3/uL (130-400); RBC Distribution Width 13.2 % (11.5-14.5); Red Blood Cell (RBC) Count 4.43 mill/uL (4.20-5.40)
[2024-06-23 06:48] LABS: Anion Gap 11 mmol/L (10-20); BUN (Urea Nitrogen) 16 mg/dL (9.8-20.1); Calc. Creatinine Clearance 52 mL/min (70-130); Calcium 9.6 mg/dL (7.8-10.44); Carbon Dioxide 28 mmol/L (23-31); Chloride 101 mmol/L (98-107); Estimated GFR 90; Glucose 74 mg/dL (83-110); Magnesium 2.1 mg/dL (1.6-2.6); Potassium 4.5 mmol/L (3.5-5.1); Sodium 135 mmol/L (136-145)
[2024-06-23 15:27] VITALS: BP 124/66; TEMP 97.6
== END 2024-06-23 15:20 | disposition home or self-care (01) | DRG 193 ==
LOC: SUATTDRO 17:18 → ERS 17:18 → 2NO 18:22 → T4-A 06-22 23:00
PROVIDERS: ADMIT Internal Medicine; ATTEND Internal Medicine
DX: J13 Pneumonia due to Streptococcus pneumoniae (principal); J96.21 Acute and chronic respiratory failure with hypoxia; E44.0 Moderate protein-calorie malnutrition; J44.0 Chronic obstructive pulmonary disease with (acute) lower respiratory infection; J44.1 Chronic obstructive pulmonary disease with (acute) exacerbation; I24.89 Other forms of acute ischemic heart disease; E87.1 Hypo-osmolality and hyponatremia; I5A Non-ischemic myocardial injury (non-traumatic); Z68.1 Body mass index [BMI] 19.9 or less, adult; I10 Essential (primary) hypertension; G20.A1 Parkinson's disease without dyskinesia, without mention of fluctuations; I27.20 Pulmonary hypertension, unspecified; I07.1 Rheumatic tricuspid insufficiency; E05.90 Thyrotoxicosis, unspecified without thyrotoxic crisis or storm; I44.7 Left bundle-branch block, unspecified; E78.5 Hyperlipidemia, unspecified; F17.210 Nicotine dependence, cigarettes, uncomplicated; Z71.6 Tobacco abuse counseling
CPT/HCPCS: 36415; 71045; 80048; 80053; 81001; 83605; 83735; 84439; 84443; 84481; 84484; 85025; 85610; 85730; 87040; 87070; 87205; 87428; 87449; 87899; 93005; 93306; 94640; 94760; 96374; 96375; J0456; J0696; J1650; J2919; J7030; J7050; J7512; J7611; J7620